=== PATIENT | female | born 1995 | race Caucasian/White ===

== ENCOUNTER 2017-03-23 20:36 | Emergency (ER) | payer MEDICAID ==
[2017-03-23 20:37] VITALS: BMI 22.3
[2017-03-23 21:38] VITALS: PULSE 88; TEMP 98.7
[2017-03-23] MEDS ORDERED: Tmp-Smz 800 mg-160 mg DS Tab PO STA (22:08)
--- NOTE | 2017-03-23 22:12 | C.PDOC ---
History Of Present Illness 21-year-old female presents to the ED for evaluation of pain, redness, and swelling to an area on her right leg which began around 2 days ago. Patient suspects something bit her because she was initially itchy around the area. She denies fever, chills, or drainage from the site. Time Seen by Provider: 03/23/17 21:56 Chief Complaint (Nursing): Abnormal Skin Integrity History Per: Patient History/Exam Limitations: no limitations Onset/Duration Of Symptoms: Days (2) Current Symptoms Are (Timing): Still Present Location Of Injury: Right: Leg Quality Of Symptoms: Painful, Itching, Swollen. denies: Draining Additional History Per: Patient Past Medical History Reviewed: Historical Data, Nursing Documentation, Vital Signs Vital Signs: Last Vital Signs Temp 98.7 F 03/23/17 21:32 Pulse 88 03/23/17 21:32 Resp 20 03/23/17 22:52 BP 180/70 H 03/23/17 22:52 Pulse Ox 99 03/24/17 15:03 - Medical History PMH: No Chronic Diseases Surgical History: No Surg Hx Family History: States: Unknown Family Hx - Social History Hx Tobacco Use: No Hx Alcohol Use: No Hx Substance Use: No - Immunization History Hx Tetanus Toxoid Vaccination: No Hx Influenza Vaccination: No Hx Pneumococcal Vaccination: No Review Of Systems Constitutional: Negative for: Fever, Chills Musculoskeletal: Positive for: Leg Pain (right) Skin: Positive for: Other (pain, redness and swelling to right leg after suspected bite ) Physical Exam - Physical Exam Appears: Non-toxic, No Acute Distress Skin: Warm, Dry, Other (1cm tender, fluctuant and erythematous mass to right distal anterior tibial region ) Head: Atraumatic, Normacephalic Eye(s): bilateral: Normal Inspection Neck: Normal ROM Extremity: Normal ROM, No Calf Tenderness, Capillary Refill (less than 2 seconds ), No Deformity Neurological/Psych: Oriented x3, Normal Speech Gait: Steady ED Course And Treatment O2 Sat by Pulse Oximetry: 99 (on RA) Pulse Ox Interpretation: Normal - Incision & Drainage Of Abscess Prep Used: Betadine Procedure: Drained Pus Medical Decision Making Medical Decision Making: Impression: 21-year-old female with mass to right lower extremity Plan: * Bactrim PO * reassess and disposition Progress: Fluctuant area to right distal anterior tibial region. Area cleaned with betadine solution.Using sterile 18 gauge needle,aspirate area. Small amount of purulent discharge aspirated. Wound dressed with dry, sterile dressing. Pt tolerated well. Patient received Bactrim PO. On reassessment, patient is resting comfortably, showing no signs of distress and reports an improvement in her symptoms. Patient is stable for discharge and is advised to follow up with her PMD within 1-2 days for further evaluation. Disposition Counseled Patient/Family Regarding: Diagnosis, Need For Followup, Rx Given - Disposition Referrals: [facility] [Outside] [facility] [Outside] Disposition: HOME/ ROUTINE Disposition Time: 22:12 Condition: STABLE Additional Instructions: Keep area clean and dry. May wash gently with soap and water, do not use alcohol or iodine solution. Change dressing 1-2 times daily. Take bactrim DS as prescribed twice daily Prescriptions: Sulfamethoxazole/Trimethoprim [Bactrim DS 800 mg-160 mg] 1 tab PO BID #14 tab Instructions: Abscess Incision and Drainage (ED) Forms: [employer] (Italian) - POA Present On Arrival: None - Clinical Impression Clinical Impression: Abscess of right leg - PA / [employer] / Resident Statement MD/DO has reviewed & agrees with the documentation as recorded. - Scribe Statement The provider has reviewed the documentation as recorded by the Scribe (Tatianna Brandt) All medical record entries made by the Scribe were at my direction and personally dictated by me. I have reviewed the chart and agree that the record accurately reflects my personal performance of the history, physical exam, medical decision making, and the department course for this patient. I have also personally directed, reviewed, and agree with the discharge instructions and disposition.
[2017-03-23] MEDS ORDERED: Tmp-Smz 800 mg-160 mg DS Tab ONE (22:40)
[2017-03-23 22:52] VITALS: BP 180/70; RESP 20
[2017-03-24 14:53] VITALS: O2SAT 99
== END 2017-03-23 22:53 | disposition home or self-care (01) ==
LOC: C.ER 20:36
DX: L02.415 Cutaneous abscess of right lower limb (principal)